=== PATIENT | male | born 1955 | race Caucasian/White ===

== ENCOUNTER → 2025-02-17 | Outpatient (CLI) | payer OTHER ==
[2025-02-17] MEDS: REGADENOSON 0.4 MG/5 ML PF SYG IVP ONE (12:06)
--- NOTE | 2025-02-20 10:12 | HMCSR ---
APPROVED REPORT Height: 5 ft 6in Weight: 260 lbs TEST INDICATIONS DYSPNEA The imaging protocol used to acquire images was Rest Tc-99m/stress Tc-99m 1 day Consent: The procedure was explained and understood by the patient. Informerd consent was witnessed Deric Castle RN First, low dose rest was performed then high dose stress. RESTING DATA: The resting ekg shows: NSR Rest SPECT myocardial perfusion imaging was performed in supine position minutes following the intra venous injection of 11 mCi of Tc-99 Sestamibi. Time of rest injection: Date: 02/17/2025 Time of rest imaging: Date: 02/17/2025 PHARMACOLOGIC STRESS: Pharmacologic stress test was performed by injecting regadenoson 0.4 mg IV push followed by the intra venous injection of 29 mCi of Tc-99 Sestamibi. Time of stress injection: Date: 02/17/2025 Time of stress imaging: Date: 02/17/2025 Heart Rate at time of stress injection: 81 bpm. The images were gated to evaluate regional wall motion and calculate left ventricular ejection fracti on. STRESS DETAILS Reason for Termination: Infusion complete Stress Symptoms: Dyspnea; Chest Discomfort Max HR Achieved: 91 bpm % of APMHR Achieved: 70 Max Blood Pressure: 157/81 mmHg Stress ECG: NSR, NSR Arrhythmia: No. ST Change: No. Study quality was fair. Artifact: motion artifact, diaphragmatic artifact LEFT VENTRICLE Size: The left ventricular size is normal. Systolic Function:The left ventricular systolic function is borderline. Wall Motion: The inferior and inferior septal pardo are hypokinetic. The other pardo are grossly no rmal in function. The left ventricular ejection fraction was calculated to be 50-55%.TID = . LV PERFUSION There is a large sized, mild intensity, predominantly fixed perfusion defect seen in the basal/mid/ap ical inferior and inferior septal pardo. No obvious TID. RV Size/Shape The right ventricle was not well-visualized. Conclusion Abnormal lexiscan stress test. There is a large sized, mild intensity, predominantly fixed perfusion defect seen in the basal/mid/ap ical inferior and inferior septal pardo. No obvious TID. The left ventricular size is normal. The inferior and inferior septal pardo are hypokinetic. The other pardo are grossly normal in functi on. The left ventricular systolic function is borderline. Post stress LVEF was calculated to be 50-55 %. ECG portion was nondiagnostic. Study indicates a low to moderate risk for cardiovascular events.
== END | disposition home or self-care (01) ==
LOC: RAH 08:45
PROVIDERS: ATTEND Internal Medicine Cardiovascular Disease
DX: R06.00 Dyspnea, unspecified (principal); R07.89 Other chest pain
CPT/HCPCS: 78452; 93017; J2785; A9500 ×2